=== PATIENT | female | born 1945 | race Caucasian/White ===

== ENCOUNTER 2020-12-14 16:59 | Emergency (ER) | payer OTHER ==
[~2020-12-14] VITALS: Ht 167.6 cm; Wt 92.5 kg
[~2020-12-14 16:59] MED LIST: ATEN50TA; LISI20TA28; LOVA1TAB62
[2020-12-14 17:13] VITALS: BP 195/83
== END 2020-12-14 18:44 | disposition left against medical advice (07) ==
LOC: ER 16:59
DX: I10 Essential (primary) hypertension (principal); Z53.21 Procedure and treatment not carried out due to patient leaving prior to being seen by health care provider
CPT/HCPCS: 93005

== ENCOUNTER 2021-03-09 13:09 | Emergency (ER) | payer OTHER ==
[~2021-03-09] VITALS: Ht 165.1 cm; Wt 90.7 kg
[2021-03-09] MEDS ORDERED: KETOROLAC TROMETH 30 MG/ML 1ML VIAL IV ONE (13:30)
[2021-03-09 14:16] LABS: Urine Bacteria NONE SEEN /hpf (None Seen); Urine Blood Negative /uL (Negative); Urine Hyaline Cast FEW /lpf (0 - 2); Urine Mucus FEW (None Seen); Urine Specific Gravity 1.023 (1.001-1.035); Urine WBC 18 /hpf (0 - 5)
[2021-03-09 15:17] LABS: Basophils # (auto) 0 10 ^3/uL (0-0.2); Basophils % (auto) 0.4 % (0.0-2.0); Eosinophils # (auto) 0 10 ^3/uL (0-0.8); Eosinophils % (auto) 0.1 % (0.0-7.0); Hematocrit 35.9 % (36.0-46.0); Hemoglobin 12.5 g/dL (12.2-16.2); Lymphocytes % (auto) 13.2 % (10.0-50.0); Mean Corpuscular Hemoglobin 29.4 pg (28.0-32.0); Mean Corpuscular Hgb Conc. 34.9 g/dL (32.0-36.0); Mean Corpuscular Volume 84.4 fL (80.0-100.0); Monocytes # (auto) 0.3 10 ^3/uL (0-1.3); Monocytes % (auto) 3.8 % (0.0-12.0); Neutrophils # (auto) 6.2 10 ^3/uL (1.6-8.6); Neutrophils % (auto) 82.5 % (37.0-80.0); Red Blood Cells 4.26 10^6/uL (4.0-5.20); Red Cell Distribution Width 13.7 % (11.8-14.3); White Blood Cell 7.6 10^3/uL (4.4-10.8)
[2021-03-09 15:30] LABS: INR 1.1 (0.9-1.15); Partial Thromboplastin Time 25.7 sec (23.6-33.0)
[2021-03-09 15:38] LABS: Albumin 4.2 g/dL (3.4-5.0); Calcium 9.2 mg/dL (8.5-10.1); Potassium 3.4 mmol/L (3.5-5.1)
[2021-03-09 15:41] LABS: BUN/Creatinine Ratio 17.6; Bilirubin, Total 0.8 mg/dL (0.2-1.0); Total Protein 8.6 g/dL (6.4-8.2)
[2021-03-09] MEDS ORDERED: LACTATED RINGER'S 1,000 ML IV ONE (16:15)
[2021-03-09] MEDS ORDERED: IOHEXOL 350 MG/ML 100ML IJ ONE (18:41)
[2021-03-09] MEDS ORDERED: OXYCODONE W/ ACETAMINOPHEN 5/325MG TABLET PO ONE (18:45)
[2021-03-09] MEDS ORDERED: POTASSIUM EFFERVESENT TAB 25 MEQ PO ONE (18:45)
[2021-03-09] MEDS ORDERED: CEFP200T15 PO ×2 (21:42→21:50)
[2021-03-09 23:00] VITALS: BP 106/72
== END 2021-03-09 23:40 | disposition home or self-care (01) ==
LOC: ER 13:09
DX: N39.0 Urinary tract infection, site not specified (principal); I72.2 Aneurysm of renal artery; R94.4 Abnormal results of kidney function studies; E78.5 Hyperlipidemia, unspecified; I10 Essential (primary) hypertension; Z98.51 Tubal ligation status; Z88.6 Allergy status to analgesic agent
CPT/HCPCS: 36415; 74176; 80053; 81001; 85025; 85610; 85730; 86850; 86900; 86901; 87086; 96361; 96374; 99284; J1885

== ENCOUNTER 2021-03-11 09:47 | Emergency (ER) | payer OTHER ==
[~2021-03-11] VITALS: Ht 170.2 cm; Wt 72.6 kg
[~2021-03-11 09:47] MED LIST changes: +CEFP200T15 PO
[2021-03-11 11:33] LABS: Basophils # (auto) 0 10 ^3/uL (0-0.2); Basophils % (auto) 0.8 % (0.0-2.0); Eosinophils # (auto) 0 10 ^3/uL (0-0.8); Hematocrit 35.8 % (36.0-46.0); Hemoglobin 12.7 g/dL (12.2-16.2); Lymphocytes # (auto) 0.9 10 ^3/uL (0.4-5.4); Lymphocytes % (auto) 16.2 % (10.0-50.0); Mean Corpuscular Hgb Conc. 35.6 g/dL (32.0-36.0); Mean Corpuscular Volume 84.2 fL (80.0-100.0); Monocytes # (auto) 0.4 10 ^3/uL (0-1.3); Monocytes % (auto) 6.9 % (0.0-12.0); Neutrophils # (auto) 4.2 10 ^3/uL (1.6-8.6); Neutrophils % (auto) 76.1 % (37.0-80.0); Nucleated Red Blood Cells % 0.1 %; Red Blood Cells 4.25 10^6/uL (4.0-5.20); White Blood Cell 5.5 10^3/uL (4.4-10.8)
[2021-03-11] MEDS ORDERED: KETOROLAC TROMETH 30 MG/ML 1ML VIAL IV ONE (11:45)
[2021-03-11 11:49] LABS: Calcium 9.5 mg/dL (8.5-10.1); Potassium 3.3 mmol/L (3.5-5.1)
[2021-03-11 12:01] LABS: Albumin 4.1 g/dL (3.4-5.0); BUN/Creatinine Ratio 27.6; Bilirubin, Total 0.9 mg/dL (0.2-1.0); Magnesium 1.6 mg/dL (1.6-2.6); Total Protein 8.1 g/dL (6.4-8.2)
[2021-03-11 17:11] LABS: Urine Bacteria FEW /hpf (None Seen); Urine Blood Negative /uL (Negative); Urine Hyaline Cast FEW /lpf (0 - 2); Urine Specific Gravity 1.026 (1.001-1.035); Urine WBC 1 /hpf (0 - 5)
[2021-03-11 21:40] VITALS: BP 150/82
[2021-03-11] MEDS ORDERED: KETOROLAC TROMETH 60MG/2ML VIAL IM ONE (21:45)
[2021-03-11] MEDS ORDERED: PERCOT PO (21:46)
== END 2021-03-11 21:54 | disposition home or self-care (01) ==
LOC: ER 09:47 → EDBD 09:47 → ER 21:54
DX: R10.30 Lower abdominal pain, unspecified (principal); R11.2 Nausea with vomiting, unspecified; I10 Essential (primary) hypertension; E78.5 Hyperlipidemia, unspecified; Z90.89 Acquired absence of other organs; Z79.899 Other long term (current) drug therapy; Z88.6 Allergy status to analgesic agent; Z88.8 Allergy status to other drugs, medicaments and biological substances
CPT/HCPCS: 36415; 74176; 80053; 81001; 82150; 83690; 83735; 84484; 85025; 93005; 96372; 99285; J1885

== ENCOUNTER 2021-10-26 12:47 | Emergency (ER) | payer OTHER ==
[~2021-10-26] VITALS: Ht 165.1 cm; Wt 72.7 kg
[~2021-10-26 12:47] MED LIST changes: +PERCOT PO
[2021-10-26 15:14] LABS: Hematocrit 36.4 % (36.0-46.0); Hemoglobin 12.3 g/dL (12.2-16.2); Mean Corpuscular Hemoglobin 28.7 pg (28.0-32.0); Mean Corpuscular Hgb Conc. 33.8 g/dL (32.0-36.0); Mean Corpuscular Volume 84.9 fL (80.0-100.0); Red Blood Cells 4.29 10^6/uL (4.0-5.20); Red Cell Distribution Width 13.6 % (11.8-14.3); White Blood Cell 2.4 10^3/uL (4.4-10.8)
[2021-10-26 15:20] LABS: Basophils % (manual) 0 (0.0-2.0); Blast Cells 0; Eosinophils % (manual) 0 (0-7); Metamyelocytes % 0; Myelocytes % 0; Promyelocytes % 0; Reactive Lymphocytes 0
[2021-10-26 15:38] LABS: Albumin 3.8 g/dL (3.4-5.0); BUN/Creatinine Ratio 17.7; Calcium 8.2 mg/dL (8.5-10.1)
[2021-10-26 16:00] LABS: Bilirubin, Total 0.4 mg/dL (0.2-1.0); Total Protein 8.4 g/dL (6.4-8.2)
[2021-10-26 16:05] LABS: Band Neutrophils % (manual) 22; Lymphocytes % (manual) 21 (10.0-50.0); Monocytes % (manual) 23 (0-12)
[2021-10-26 16:26] LABS: Potassium 2.8 mmol/L (3.5-5.1)
[2021-10-26] MEDS ORDERED: POTASSIUM EFFERVESENT TAB 25 MEQ PO ONE (16:30)
[2021-10-26] MEDS ORDERED: ALUM & MAG HYDROX-SIMETH LIQ(MAALOX) 30 ML PO ONE (21:00)
[2021-10-26] MEDS ORDERED: SOD CHL 0.9%/ KCL 20MEQ 1,000 ML IV ONE (21:00)
[2021-10-26] MEDS ORDERED: CALCIUM ACETATE 667 MG CAP PO ONE (21:00)
[2021-10-26] MEDS ORDERED: ONDANSETRON HCL 4 MG/2 ML VIAL IV ONE (21:00)
[2021-10-26] MEDS ORDERED: LIDOCAINE VISCOUS 2% 15ML UD PO ONE (21:00)
[2021-10-26] MEDS ORDERED: FAMOTIDINE (10MG/ML) 2ML VL IV ONE (21:00)
[2021-10-26] MEDS ORDERED: LACTATED RINGER'S 1,000 ML IV ONE (22:00)
[2021-10-26] MEDS ORDERED: METOCLOPRAMIDE HCL 5MG/ml INJ 2ml VIAL IV ONE (22:00)
[2021-10-27 00:13] LABS: Urine Bacteria FEW /hpf (None Seen); Urine Blood 3+ /uL (Negative); Urine Hyaline Cast MANY /lpf (0 - 2); Urine Mucus FEW (None Seen); Urine WBC 32 /hpf (0 - 5); Urine WBC Clumps PRESENT /hpf (None Seen)
[2021-10-27 00:29] VITALS: BP 131/60
== END 2021-10-27 00:55 | disposition short-term general hospital (02) ==
LOC: EDBD 12:47 → ER 12:47
DX: U07.1 COVID-19 (principal); N17.9 Acute kidney failure, unspecified; D70.9 Neutropenia, unspecified; E87.6 Hypokalemia; E86.0 Dehydration; E83.51 Hypocalcemia; Z88.6 Allergy status to analgesic agent; Z88.8 Allergy status to other drugs, medicaments and biological substances
CPT/HCPCS: 36415; 71045; 80053; 81001; 83605; 85007; 85027; 87426; 96361; 96365; 96375; 99285; J2405; J3490